=== PATIENT | female | born 1990 | race Caucasian/White ===

== ENCOUNTER 2016-07-09 07:47 | Emergency (ER) | payer BC ==
--- NOTE | 2016-07-09 08:14 | UC ---
Hand/Wrist HPI - HPI Summary HPI Summary: 26 yo female sustained a flap laceration to her distal RMF after it got pinched between logs She was wearing gloves She is right handed Td < 10 yrs ago she removed flap - History Of Current Complaint Chief Complaint: UCSkin Stated Complaint: RT HAND MID FINGER INJURY Time Seen by Provider: 07/09/16 08:02 Hx Obtained From: Patient Hx Last Menstrual Period: 06/22/16 Onset/Duration: Sudden Onset, Lasting Days Severity Initially: Moderate Severity Currently: Moderate Pain Intensity: 4 Pain Scale Used: 0-10 Numeric Character Of Pain: Throbbing Aggravating Factor(s): Other - touch Associated Signs And Symptoms: Positive: Swelling, Redness Related History: Dominant Hand Right - Allergies/Home Medications Allergies/Adverse Reactions: Allergies Allergy/AdvReac Type Severity Reaction Status Date / Time Penicillins Allergy Difficulty Verified 07/09/16 07:53 Breathing Home Medications: Home Medications Drospirenone-Ethinyl Estradiol [Ocella 3-0.03 mg] 1 tab PO DAILY 07/09/16 [ History Confirmed 07/09/16] PMH/Surg Hx/FS Hx/Imm Hx Previously Healthy: Yes - Surgical History Surgical History: None - Family History Known Family History: Positive: Hypertension - Social History Alcohol Use: Occasionally Substance Use Type: None Smoking Status (MU): Never Smoked Tobacco - Immunization History Most Recent Tetanus Shot: unknown Review of Systems Constitutional: Negative Skin: Negative Eyes: Negative ENT: Negative Respiratory: Negative Cardiovascular: Negative Gastrointestinal: Negative Genitourinary: Negative Motor: Negative Neurovascular: Negative Musculoskeletal: Negative Neurological: Negative Psychological: Negative All Other Systems Reviewed And Are Negative: Yes Physical Exam Triage Information Reviewed: Yes Appearance: Well-Appearing, No Pain Distress, Well-Nourished Vital Signs: Initial Vital Signs Temp 98.7 F 07/09/16 07:54 Pulse 81 07/09/16 07:54 Resp 16 07/09/16 07:54 BP 143/90 07/09/16 07:54 Pulse Ox 100 07/09/16 07:54 Vital Signs Reviewed: Yes Eyes: Positive: Conjunctiva Clear ENT: Positive: Hearing grossly normal. Negative: Nasal congestion, Nasal drainage, Trismus, Muffled/hoarse voice Neck: Positive: Supple, Nontender Respiratory: Positive: Lungs clear, Normal breath sounds, No respiratory distress Cardiovascular: Positive: RRR, No Murmur Musculoskeletal: Positive: Other: - see image Neurological: Positive: Alert Psychological Exam: Normal Skin Exam: Other - see image Hand/Wrist Course/Dx - Differential Dx/Diagnosis Provider Diagnoses: avulsion right middle finger. granuloma right middle finger. cellulitis Discharge - Discharge Plan Condition: Stable Disposition: HOME Prescriptions: Cephalexin CAP* [Keflex CAP*] 500 mg PO QID #28 cap Patient Education Materials: Skin Avulsion (ED) Referrals: No Primary Care Phys,NOPCP [Primary Care Provider] - Additional Instructions: wear splint for comfort/bandaid at work leave open to air when you can epsom salt soaks 3-4 x day the painful lump is a granuloma with time that should dry and fall off recheck in 3-4 days if not improving Images Hands: 1 - -granuloma lateral nail bed. -no subungual hematoma. -area of avulsaed skin with surrouning erthema
--- NOTE | 2016-07-09 08:25 | RAD ---
INDICATION: Right long finger distal phalanx crush injury 5 days earlier TECHNIQUE: 3 views of the right middle finger were obtained. FINDINGS: The bones are normal alignment. Joint spaces appear maintained. No fracture is seen. IMPRESSION: NO EVIDENCE FOR FRACTURE, IF THE PATIENT'S SYMPTOMS PERSIST RECOMMEND FOLLOW-UP IMAGING.
[2016-07-09 08:42] VITALS: BP 137/76
== END 2016-07-09 08:43 | disposition home or self-care (01) ==
LOC: UCCORT 07:47
DX: S61.212A Laceration without foreign body of right middle finger without damage to nail, initial encounter (principal); L03.011 Cellulitis of right finger; W23.0XXA Caught, crushed, jammed, or pinched between moving objects, initial encounter; Y93.9 Activity, unspecified; Y92.9 Unspecified place or not applicable; L92.9 Granulomatous disorder of the skin and subcutaneous tissue, unspecified; Z88.0 Allergy status to penicillin
CPT/HCPCS: 73140; 99213; G0463

== ENCOUNTER 2018-10-02 07:22 | Emergency (ER) | payer BC ==
[2018-10-02 07:37] VITALS: BP 131/72
--- NOTE | 2018-10-02 08:00 | UC ---
Respiratory Complaint HPI - HPI Summary HPI Summary: 28 yo female with seasonal allergies x weeks now with right otalgia/marked facial pressure and pain as well right eye redness and d/c no eye pain or photophobia no f/c no CP or SOB - History of Current Complaint Chief Complaint: UCRespiratory Stated Complaint: SINUS CONGESTION Time Seen by Provider: 10/02/18 07:59 Hx Obtained From: Patient Hx Last Menstrual Period: ~09/04/18 Onset/Duration: Gradual Onset, Lasting Weeks Timing: Constant Severity Initially: Mild Severity Currently: Moderate Pain Intensity: 4 Pain Scale Used: Adult Non Verbal Character: Cough: Nonproductive Aggravating Factors: Nothing Associated Signs And Symptoms: Positive: Fever, URI, Nasal Congestion, Hoarseness, Sinus Discomfort Related History: Seasonal Allergies - Allergies/Home Medications Allergies/Adverse Reactions: Allergies Allergy/AdvReac Type Severity Reaction Status Date / Time Penicillins Allergy Difficulty Verified 10/02/18 07:34 Breathing Home Medications: Home Medications Phenylephrine/Dm/Acetaminop/GG [Vicks Dayquil Severe Cold-Flu] 2 each PO Q6H PRN 10/02/18 [History Confirmed 10/02/18] PMH/Surg Hx/FS Hx/Imm Hx Previously Healthy: Yes - Surgical History Surgical History: None - Family History Known Family History: Positive: Hypertension Negative: Cardiac Disease, Diabetes - Social History Alcohol Use: Occasionally Substance Use Type: None Smoking Status (MU): Never Smoked Tobacco - Immunization History Most Recent Tetanus Shot: unknown Review of Systems All Other Systems Reviewed And Are Negative: Yes Constitutional: Positive: Fatigue Skin: Positive: Negative Eyes: Positive: Drainage, Eye Redness ENT: Positive: Ear Ache, Nasal Discharge, Sinus Congestion, Sinus Pain/ Tenderness Respiratory: Positive: Cough Cardiovascular: Positive: Negative Gastrointestinal: Positive: Negative Genitourinary: Positive: Negative Motor: Positive: Negative Neurovascular: Positive: Negative Musculoskeletal: Positive: Negative Neurological: Positive: Negative Psychological: Positive: Negative Physical Exam Triage Information Reviewed: Yes Appearance: Well-Appearing, No Pain Distress, Well-Nourished Vital Signs: Initial Vital Signs Temp 97.9 F 10/02/18 07:33 Pulse 70 10/02/18 07:33 Resp 16 10/02/18 07:33 BP 131/72 10/02/18 07:33 Pulse Ox 100 10/02/18 07:33 Vital Signs Reviewed: Yes Eyes: Positive: Conjunctiva Inflamed - r, Discharge - r ENT: Positive: Pharyngeal erythema, Nasal congestion, Nasal drainage, TM bulging - r, Sinus tenderness, Uvula midline. Negative: Tonsillar swelling, Tonsillar exudate, Trismus, Muffled voice, Hoarse voice Dental Exam: Normal Neck: Positive: Supple, Nontender, No Lymphadenopathy Respiratory: Positive: Normal breath sounds, No respiratory distress, No accessory muscle use Cardiovascular: Positive: RRR, No Murmur Musculoskeletal: Positive: ROM Intact, No Edema Neurological: Positive: Alert Psychological Exam: Normal Skin Exam: Normal Respiratory Course/Dx - Differential Dx/Diagnosis Provider Diagnosis: Right otitis media, Right conjunctivitis, Sinusitis Discharge - Sign-Out/Discharge Documenting (check all that apply): Patient Departure All imaging exams completed and their final reports reviewed: No Studies - Discharge Plan Condition: Stable Disposition: HOME Prescriptions: Azithromycin TAB* [Zithromax TAB*] 250 mg PO DAILY #6 tab Fluticasone NASAL SPRAY 50MCG* [Flonase NASAL SPRAY 50MCG*] 2 spray BOTH NARES BID #1 btl Polymyx/Trimethoprim OPTH* [Polytrim OPHTH*] 1 - 2 drop RIGHT EYE QID #1 btl Patient Education Materials: Sinusitis (ED), Conjunctivitis (ED) Referrals: Betito Huddleston MD [Primary Care Provider] - 5 Days (if not better) Additional Instructions: warm facial compresses saline nasal spray - 2 sprays twice daily about five minutes later 2 sprays of flonase twice daily - Billing Disposition and Condition Condition: STABLE Disposition: Home
== END 2018-10-02 08:20 | disposition home or self-care (01) ==
LOC: UCCORT 07:22
DX: J32.9 Chronic sinusitis, unspecified (principal); H66.91 Otitis media, unspecified, right ear; H10.31 Unspecified acute conjunctivitis, right eye; Z88.0 Allergy status to penicillin
CPT/HCPCS: 99212; G0463